=== PATIENT | male | born 1945 | race African-American/Black ===

== ENCOUNTER 2017-11-16 17:25 | Inpatient (IN) ==
[2017-11-16 18:13] LABS: Basophils # 0.1 10*3/uL (0.0-0.2); Basophils % 0.5 % (0.0-0.8); Eosinophils % 0.1 % (0.00-10.9); Hematocrit 32.4 VOL% (42.0-52.0); Hemoglobin 11.5 GM/DL (14.0-18.0); Immature Granulocytes % 0.6 %; Lymphocytes % 12.4 % (21.2-54.2); Mean Corpuscular HGB Conc 35.5 GM/DL (32-36); Mean Corpuscular Hemoglobin 33 PG (27-34); Mean Platelet Volume 9.9 FL (9.6-12.0); Monocytes # 1.1 10*3/uL (0.11-0.8); Monocytes % 6.9 % (1.7-12.7); Neutrophils # 12.6 10*3/uL (1.4-7.4); Neutrophils % 79.5 % (38.7-73.9); Platelet Count 315 T/CUMM (130-400); Red Blood Count 3.52 MC/CUMM (3.8-5.5); White Blood Count 15.9 T/CUMM (4-12)
[2017-11-16 18:38] LABS: Lactic Acid 2.5 MMOL/L (0.4-2.0)
[2017-11-16 18:44] LABS: Alanine Aminotransferase 10 U/L (16-61); Albumin 2.9 G/DL (3.4-5.0); Alkaline Phosphatase 180 U/L (45-117); Aspartate Amino Transferase 22 U/L (0-37); Bilirubin,Total < 0.39 MG/DL (0.2-1.0); Blood Urea Nitrogen 9 MG/DL (7-18); Glucose 124 MG/DL (74-106); Osmolality,Calculated 267.2 MOS/KG (273-304); Potassium 3.5 MMOL/L (3.5-5.1); Sodium 134 MMOL/L (136-145); Total Protein 8.1 G/DL (6.4-8.3); Troponin I Only < 0.015 NG/ML (0.00-0.045)
[2017-11-16] MEDS ORDERED: SODIUM CHLORIDE 0.9% 2,050 ML IV ONE (20:01)
[2017-11-16] MEDS ORDERED: AZITHROMYCIN INJ 500 MG in SODIUM CHLORIDE 0.9% 250 ML IV STA (20:04)
[2017-11-16] MEDS ORDERED: cefTRIAXone 1,000 MG in SODIUM CHLORIDE 0.9% 100 ML IV STA (20:04)
[2017-11-16] MEDS ORDERED: ALBUTEROL/IPRATROPIUM 3 ML NEB RESP TX STA (20:06)
[2017-11-16] MEDS ORDERED: methylPREDNISolone SOD SUC 125 MG/2 ML VIAL IV STA (20:06)
[2017-11-16] MEDS ORDERED: AZITHROMYCIN 500 MG VIAL IV ONE (21:39)
[2017-11-16] MEDS ORDERED: methylPREDNISolone SOD SUC 125 MG/2 ML VIAL ONE (21:39)
[2017-11-16] MEDS ORDERED: cefTRIAXone 1,000 MG VIAL ONE (21:39)
[2017-11-16 22:36] LABS: Apearance,Urine CLEAR (Clear); Bilirubin,Urine Negative (Negative); Blood, Urine Small mg/dL (Negative); Glucose,Urine (UA) Negative (Negative); Ketones,Urine Negative (Negative); Nitrite,Urine Negative (Negative); Protein,Urine Negative; RBC,Urine 9 /HPF (0-4); Squamous Epithelial Cell,Urine Occasional /HPF (0-10); Urine Color Straw (Yellow); Urine Specific Gravity 1.032 (1.001-1.035); Urine Urobilinogen < 2.0 EU/DL (0.2-1.0); WBC,Urine 1 /HPF (0-6)
[2017-11-16] MEDS ORDERED: MORPHINE 2 MG/1 ML SYRINGE IV PRN (23:42)
[2017-11-16] MEDS ORDERED: LORazepam 2 MG/1 ML VIAL IV PRN (23:42)
[2017-11-16] MEDS ORDERED: ALBUTEROL/IPRATROPIUM 3 ML NEB RESP TX PRN (23:42)
[2017-11-16] MEDS ORDERED: ONDANSETRON 4 MG/2 ML VIAL IV PRN (23:42)
[2017-11-16] MEDS ORDERED: MELOXICAM 7.5 MG TABLET PO PRN (23:42)
[2017-11-16] MEDS ORDERED: ACETAMINOPHEN 500 MG TABLET PO PRN (23:42)
[2017-11-17] MEDS: chlordiazePOXIDE 25 MG CAPSULE PO SCH ×2 (00:13→05:45)
[2017-11-17] MEDS: PHENYTOIN ER 100 MG CAPSULE PO SCH ×3 (00:14→21:21)
[2017-11-17] MEDS: SODIUM CHLORIDE 0.9% 1,000 ML IV SCH ×2 (00:17→14:50)
[2017-11-17] MEDS: COLESTIPOL 1 GM TABLET PO SCH ×3 (00:17→21:22)
[2017-11-17] MEDS: ALBUTEROL/IPRATROPIUM 3 ML NEB RESP TX SCH ×8 (03:19→19:27)
[2017-11-17] MEDS: VANCOMYCIN INJ 1,000 MG in SODIUM CHLORIDE 0.9% 250 ML IV SCH ×3 (03:43→21:19)
[2017-11-17] MEDS: methylPREDNISolone SOD SUC 40 MG/1 ML VIAL IV SCH ×3 (05:30→21:20)
[2017-11-17 05:31] LABS: Hemoglobin A1C 4.9 % (4.2-6.3)
[2017-11-17 05:40] LABS: Phenytoin (Dilantin) 20.8 UG/ML (10-20)
[2017-11-17 05:54] LABS: Risk Ratio 1.94; VLDL CHOLESTEROL 13.2 MG/DL
[2017-11-17] MEDS ORDERED: chlordiazePOXIDE 25 MG CAPSULE PO PRN (07:35)
[2017-11-17] MEDS ORDERED: CYANOCOBALAMIN 1000 MCG/1 ML VIAL IM SCH (09:00)
[2017-11-17] MEDS: ENOXAPARIN 40 MG/0.4 ML SYRINGE SUBCUT SCH (09:55)
[2017-11-17] MEDS: LEVOFLOXACIN INJ 750 MG in PREMIX 1 EACH IV SCH (09:55)
[2017-11-17] MEDS: MAGNESIUM OXIDE 400 MG TABLET PO SCH (09:56)
[2017-11-17] MEDS: FOLIC ACID 1 MG TABLET PO SCH (09:56)
[2017-11-17] MEDS: GABAPENTIN 300 MG CAPSULE PO SCH ×3 (09:57→21:21)
[2017-11-17] MEDS: amLODIPine 10 MG TABLET PO SCH (09:57)
[2017-11-17] MEDS: THIAMINE 100 MG TABLET PO SCH ×2 (09:57→21:22)
[2017-11-17] MEDS: MULTIVITAMIN (CENTRUM) TABLET PO SCH (09:57)
[2017-11-17] MEDS: PANTOPRAZOLE 40 MG TABLET PO SCH (09:58)
[2017-11-17] MEDS: DOCUSATE SODIUM 100 MG CAPSULE PO SCH ×2 (09:58→21:21)
[2017-11-17] MEDS: SERTRALINE 100 MG TABLET PO SCH (10:35)
[2017-11-17] MEDS: DORNASE ALFA 2.5 MG/2.5 ML VIAL RESP TX SCH ×2 (11:12→19:27)
[2017-11-17 11:29] LABS: Free T4 (Free Thyroxine) 0.99 NG/DL (0.76-1.46); Thyroid Stimulating Hormone 0.468 uIU/ml (0.358-3.74)
[2017-11-17] MEDS: PIPERACILLIN/TAZOBACTAM 3,375 MG in SODIUM CHLORIDE 0.9% 100 ML IV SCH ×2 (15:25→21:19)
[2017-11-18] MEDS: ALBUTEROL/IPRATROPIUM 3 ML NEB RESP TX SCH ×3 (00:53→14:05)
[2017-11-18] MEDS: VANCOMYCIN INJ 1,000 MG in SODIUM CHLORIDE 0.9% 250 ML IV SCH ×2 (04:13→13:20)
[2017-11-18] MEDS: methylPREDNISolone SOD SUC 40 MG/1 ML VIAL IV SCH ×3 (04:13→21:28)
[2017-11-18] MEDS: PIPERACILLIN/TAZOBACTAM 3,375 MG in SODIUM CHLORIDE 0.9% 100 ML IV SCH ×3 (04:14→21:28)
[2017-11-18] MEDS: SODIUM CHLORIDE 0.9% 1,000 ML IV SCH (04:14)
[2017-11-18 05:14] LABS: Basophils % 0.2 % (0.0-0.8); Hematocrit 30.2 VOL% (42.0-52.0); Hemoglobin 10.2 GM/DL (14.0-18.0); Immature Granulocytes % 0.7 %; Immature Granulocytes Absolute 0.09 #; Lymphocytes # 1.5 10*3/uL (1.4-4.0); Mean Corpuscular HGB Conc 33.8 GM/DL (32-36); Mean Corpuscular Hemoglobin 32 PG (27-34); Mean Corpuscular Volume 95.6 FL (87-102); Mean Platelet Volume 10.3 FL (9.6-12.0); Monocytes # 0.8 10*3/uL (0.11-0.8); Monocytes % 5.6 % (1.7-12.7); Neutrophils # 11.3 10*3/uL (1.4-7.4); Neutrophils % 82.5 % (38.7-73.9); Platelet Count 276 T/CUMM (130-400); Red Blood Count 3.16 MC/CUMM (3.8-5.5); Red Cell Distribution Width 11.9 % (9.3-17.3); White Blood Count 13.7 T/CUMM (4-12)
[2017-11-18 06:05] LABS: Alanine Aminotransferase < 9 U/L (16-61); Albumin 2.4 G/DL (3.4-5.0); Alkaline Phosphatase 135 U/L (45-117); Aspartate Amino Transferase 14 U/L (0-37); Bilirubin,Total < 0.39 MG/DL (0.2-1.0); Blood Urea Nitrogen 10 MG/DL (7-18); Calcium 8.3 MG/DL (8.5-10.1); Glucose 214 MG/DL (74-106); Osmolality,Calculated 277.8 MOS/KG (273-304); Potassium 4.4 MMOL/L (3.5-5.1); Sodium 137 MMOL/L (136-145); Total Protein 6.4 G/DL (6.4-8.3)
[2017-11-18] MEDS: DORNASE ALFA 2.5 MG/2.5 ML VIAL RESP TX SCH ×2 (07:38→19:50)
[2017-11-18] MEDS: DOCUSATE SODIUM 100 MG CAPSULE PO SCH ×2 (09:41→21:28)
[2017-11-18] MEDS: MULTIVITAMIN (CENTRUM) TABLET PO SCH (09:41)
[2017-11-18] MEDS: LEVOFLOXACIN INJ 750 MG in PREMIX 1 EACH IV SCH (09:42)
[2017-11-18] MEDS: PHENYTOIN ER 100 MG CAPSULE PO SCH ×2 (09:42→21:27)
[2017-11-18] MEDS: THIAMINE 100 MG TABLET PO SCH ×2 (09:42→21:28)
[2017-11-18] MEDS: COLESTIPOL 1 GM TABLET PO SCH ×2 (09:42→21:27)
[2017-11-18] MEDS: FOLIC ACID 1 MG TABLET PO SCH (09:42)
[2017-11-18] MEDS: SERTRALINE 100 MG TABLET PO SCH (09:43)
[2017-11-18] MEDS: amLODIPine 10 MG TABLET PO SCH (09:43)
[2017-11-18] MEDS: GABAPENTIN 300 MG CAPSULE PO SCH ×3 (09:43→21:27)
[2017-11-18] MEDS: ENOXAPARIN 40 MG/0.4 ML SYRINGE SUBCUT SCH (09:43)
[2017-11-18] MEDS: PANTOPRAZOLE 40 MG TABLET PO SCH (09:43)
[2017-11-18] MEDS: MAGNESIUM OXIDE 400 MG TABLET PO SCH (09:47)
[2017-11-18 15:46] LABS: Procalcitonin, S 0.16 ng/mL (<=0.15)
[2017-11-18] MEDS: ALBUTEROL/IPRATROPIUM 3 ML NEB RESP TX PRN ×2 (19:50→23:43)
[2017-11-19] MEDS: VANCOMYCIN INJ 1,000 MG in SODIUM CHLORIDE 0.9% 250 ML IV SCH ×2 (01:29→13:20)
[2017-11-19] MEDS: methylPREDNISolone SOD SUC 40 MG/1 ML VIAL IV SCH ×3 (04:13→21:49)
[2017-11-19] MEDS: PIPERACILLIN/TAZOBACTAM 3,375 MG in SODIUM CHLORIDE 0.9% 100 ML IV SCH ×3 (04:13→21:47)
[2017-11-19 07:13] LABS: Calcium 8.4 MG/DL (8.5-10.1); Osmolality,Calculated 276.4 MOS/KG (273-304); Potassium 4.2 MMOL/L (3.5-5.1)
[2017-11-19] MEDS: DORNASE ALFA 2.5 MG/2.5 ML VIAL RESP TX SCH ×2 (07:40→19:08)
[2017-11-19] MEDS ORDERED: MAGNESIUM SULF RIDER 2 GM in PREMIX 1 EACH IV PRN (08:08)
[2017-11-19] MEDS ORDERED: MAGNESIUM SULF RIDER 4 GM in PREMIX 1 EACH IV PRN (08:08)
[2017-11-19] MEDS: GABAPENTIN 300 MG CAPSULE PO SCH ×3 (09:47→21:48)
[2017-11-19] MEDS: MULTIVITAMIN (CENTRUM) TABLET PO SCH (09:47)
[2017-11-19] MEDS: PHENYTOIN ER 100 MG CAPSULE PO SCH ×2 (09:47→21:48)
[2017-11-19] MEDS: SERTRALINE 100 MG TABLET PO SCH (09:47)
[2017-11-19] MEDS: THIAMINE 100 MG TABLET PO SCH ×2 (09:47→21:49)
[2017-11-19] MEDS: DOCUSATE SODIUM 100 MG CAPSULE PO SCH ×2 (09:48→21:48)
[2017-11-19] MEDS: COLESTIPOL 1 GM TABLET PO SCH ×2 (09:48→21:49)
[2017-11-19] MEDS: ENOXAPARIN 40 MG/0.4 ML SYRINGE SUBCUT SCH (09:48)
[2017-11-19] MEDS: MAGNESIUM OXIDE 400 MG TABLET PO SCH (09:48)
[2017-11-19] MEDS: PANTOPRAZOLE 40 MG TABLET PO SCH (09:48)
[2017-11-19] MEDS: amLODIPine 10 MG TABLET PO SCH (09:48)
[2017-11-19] MEDS: FOLIC ACID 1 MG TABLET PO SCH (09:48)
[2017-11-19] MEDS: LEVOFLOXACIN INJ 750 MG in PREMIX 1 EACH IV SCH (09:52)
[2017-11-19] MEDS: ALBUTEROL/IPRATROPIUM 3 ML NEB RESP TX SCH ×2 (13:15→19:08)
[2017-11-20] MEDS: ALBUTEROL/IPRATROPIUM 3 ML NEB RESP TX SCH ×3 (00:16→12:30)
[2017-11-20] MEDS: VANCOMYCIN INJ 1,000 MG in SODIUM CHLORIDE 0.9% 250 ML IV SCH (01:02)
[2017-11-20] MEDS: PIPERACILLIN/TAZOBACTAM 3,375 MG in SODIUM CHLORIDE 0.9% 100 ML IV SCH (05:21)
[2017-11-20] MEDS: methylPREDNISolone SOD SUC 40 MG/1 ML VIAL IV SCH (05:22)
[2017-11-20 06:15] LABS: Basophils % 0.4 % (0.0-0.8); Eosinophils % 0.2 % (0.00-10.9); Hematocrit 31.1 VOL% (42.0-52.0); Hemoglobin 10.2 GM/DL (14.0-18.0); Immature Granulocytes % 0.6 %; Immature Granulocytes Absolute 0.06 #; Lymphocytes # 2.1 10*3/uL (1.4-4.0); Lymphocytes % 20.7 % (21.2-54.2); Mean Corpuscular HGB Conc 32.8 GM/DL (32-36); Mean Corpuscular Hemoglobin 32 PG (27-34); Mean Corpuscular Volume 97.8 FL (87-102); Monocytes # 0.6 10*3/uL (0.11-0.8); Monocytes % 5.9 % (1.7-12.7); Neutrophils # 7.3 10*3/uL (1.4-7.4); Neutrophils % 72.2 % (38.7-73.9); Platelet Count 312 T/CUMM (130-400); Red Blood Count 3.18 MC/CUMM (3.8-5.5); Red Cell Distribution Width 12.1 % (9.3-17.3); White Blood Count 10.1 T/CUMM (4-12)
[2017-11-20 06:50] LABS: Calcium 8.5 MG/DL (8.5-10.1); Osmolality,Calculated 276.5 MOS/KG (273-304); Potassium 4.7 MMOL/L (3.5-5.1)
[2017-11-20] MEDS: DORNASE ALFA 2.5 MG/2.5 ML VIAL RESP TX SCH (07:09)
[2017-11-20] MEDS: SERTRALINE 100 MG TABLET PO SCH (08:56)
[2017-11-20] MEDS: COLESTIPOL 1 GM TABLET PO SCH (08:56)
[2017-11-20] MEDS: GABAPENTIN 300 MG CAPSULE PO SCH (08:56)
[2017-11-20] MEDS: THIAMINE 100 MG TABLET PO SCH (08:56)
[2017-11-20] MEDS: PHENYTOIN ER 100 MG CAPSULE PO SCH (08:56)
[2017-11-20] MEDS: amLODIPine 10 MG TABLET PO SCH (08:56)
[2017-11-20] MEDS: MAGNESIUM OXIDE 400 MG TABLET PO SCH (08:56)
[2017-11-20] MEDS: DOCUSATE SODIUM 100 MG CAPSULE PO SCH (08:57)
[2017-11-20] MEDS: FOLIC ACID 1 MG TABLET PO SCH (08:57)
[2017-11-20] MEDS: PANTOPRAZOLE 40 MG TABLET PO SCH (08:57)
[2017-11-20] MEDS: LEVOFLOXACIN INJ 750 MG in PREMIX 1 EACH IV SCH (08:57)
[2017-11-20] MEDS: MULTIVITAMIN (CENTRUM) TABLET PO SCH (08:57)
[2017-11-20] MEDS: ENOXAPARIN 40 MG/0.4 ML SYRINGE SUBCUT SCH (08:57)
[2017-11-20 11:55] VITALS: BP 138/86
== END 2017-11-20 13:45 | disposition home or self-care (01) | DRG 190 ==
LOC: N.ED 17:25 → N.EDINP 20:34 → N.5E 22:39
PROVIDERS: ADMIT Family Medicine; ATTEND Family Medicine

== ENCOUNTER 2018-09-29 12:44 | Observation (INO) ==
[2018-09-29] MEDS ORDERED: methylPREDNISolone SOD SUC 125 MG/2 ML VIAL ONE (13:19)
[2018-09-29] MEDS ORDERED: diphenhydrAMINE 50 MG/1 ML VIAL ONE (13:19)
[2018-09-29] MEDS ORDERED: methylPREDNISolone SOD SUC 125 MG/2 ML VIAL IV STA (13:20)
[2018-09-29] MEDS ORDERED: FAMOTIDINE 20 MG/2 ML VIAL IV STA (13:20)
[2018-09-29] MEDS ORDERED: diphenhydrAMINE 50 MG/1 ML VIAL IV STA (13:20)
[2018-09-29] MEDS ORDERED: FAMOTIDINE 20 MG/2 ML VIAL IV ONE (13:20)
[2018-09-29] MEDS ORDERED: ONDANSETRON 4 MG/2 ML VIAL IV STA (14:09)
[2018-09-29] MEDS ORDERED: ONDANSETRON 4 MG/2 ML VIAL IV PRN (15:44)
[2018-09-29] MEDS ORDERED: diphenhydrAMINE 50 MG/1 ML VIAL IV PRN (15:48)
[2018-09-29] MEDS ORDERED: ALBUTEROL 2.5 MG/3 ML NEB RESP TX PRN (15:49)
[2018-09-29] MEDS ORDERED: chlordiazePOXIDE 10 MG CAPSULE PO PRN (15:51)
[2018-09-29] MEDS ORDERED: CYANOCOBALAMIN 1000 MCG/1 ML VIAL IM SCH (18:00)
[2018-09-29] MEDS: SODIUM CHLORIDE 0.9% 1,000 ML IV SCH (18:33)
[2018-09-29] MEDS ORDERED: traZODone 50 MG TABLET PO SCH (21:00)
[2018-09-29] MEDS ORDERED: risperiDONE 1 MG TABLET PO SCH (21:00)
[2018-09-29] MEDS: BUDESONIDE/FORMOTEROL 160-4.5 INHALER 6 GM INH SCH (22:00)
[2018-09-29] MEDS: GABAPENTIN 600 MG TABLET PO SCH (22:00)
[2018-09-29] MEDS: PHENYTOIN ER 100 MG CAPSULE PO SCH (22:00)
[2018-09-29] MEDS: FAMOTIDINE 20 MG TABLET PO SCH (22:00)
[2018-09-30] MEDS ORDERED: methylPREDNISolone SOD SUC 40 MG/1 ML VIAL IV SCH (01:00)
[2018-09-30] MEDS: SODIUM CHLORIDE 0.9% 1,000 ML IV SCH (04:28)
[2018-09-30 04:54] LABS: Basophils % 0.3 % (0.0-0.8); Hematocrit 30.2 VOL% (42.0-52.0); Hemoglobin 9.9 GM/DL (14.0-18.0); Immature Granulocytes % 0.3 %; Immature Granulocytes Absolute 0.02 #; Lymphocytes # 0.9 10*3/uL (1.4-4.0); Lymphocytes % 14.4 % (21.2-54.2); Mean Corpuscular HGB Conc 32.8 GM/DL (32-36); Mean Corpuscular Hemoglobin 32 PG (27-34); Mean Corpuscular Volume 96.8 FL (87-102); Mean Platelet Volume 10.8 FL (9.6-12.0); Monocytes # 0.3 10*3/uL (0.11-0.8); Monocytes % 5.2 % (1.7-12.7); Neutrophils # 4.8 10*3/uL (1.4-7.4); Neutrophils % 79.8 % (38.7-73.9); Platelet Count 181 T/CUMM (130-400); Red Blood Count 3.12 MC/CUMM (3.8-5.5); Red Cell Distribution Width 12.1 % (9.3-17.3)
[2018-09-30 05:14] LABS: Calcium 8.6 MG/DL (8.5-10.1); Osmolality,Calculated 279.5 MOS/KG (273-304); Potassium 4.4 MMOL/L (3.5-5.1)
[2018-09-30] MEDS ORDERED: buPROPion XL 150 MG TABLET PO SCH (09:00)
[2018-09-30] MEDS ORDERED: MAGNESIUM OXIDE 400 MG TABLET PO SCH (09:00)
[2018-09-30] MEDS ORDERED: amLODIPine 10 MG TABLET PO SCH (09:00)
[2018-09-30] MEDS ORDERED: CETIRIZINE 10 MG TABLET PO SCH (09:00)
[2018-09-30] MEDS ORDERED: FOLIC ACID 1 MG TABLET PO SCH (09:00)
[2018-09-30] MEDS: GABAPENTIN 600 MG TABLET PO SCH (09:37)
[2018-09-30] MEDS: FAMOTIDINE 20 MG TABLET PO SCH (09:41)
[2018-09-30] MEDS: PHENYTOIN ER 100 MG CAPSULE PO SCH (09:42)
[2018-09-30] MEDS: BUDESONIDE/FORMOTEROL 160-4.5 INHALER 6 GM INH SCH (09:43)
[2018-09-30 12:01] VITALS: BP 119/89
[2018-09-30] MEDS: IPRATROPIUM 500 MCG/2.5 ML NEB RESP TX SCH ×2 (12:11→12:49)
== END 2018-09-30 13:05 | disposition home or self-care (01) ==
LOC: N.ED 12:44 → N.EDINP 12:44 → SUATTDRO 15:44 → N.3E 17:00
PROVIDERS: ADMIT Internal Medicine Nephrology; ATTEND Emergency Medicine

== ENCOUNTER 2019-11-12 08:58 | Inpatient (IN) ==
[2019-11-12] MEDS ORDERED: DIAZEPAM 5 MG TABLET PO ONE (09:11)
[2019-11-12] MEDS ORDERED: MAGNESIUM SULF RIDER 2 GM in PREMIX 1 EACH IV PRN (09:11)
[2019-11-12] MEDS ORDERED: diphenhydrAMINE CAP 25 MG CAPSULE PO ONE (09:11)
[2019-11-12] MEDS ORDERED: POTASSIUM CHLORIDE RIDER 10 MEQ in PREMIX 1 EACH IV PRN (09:11)
[2019-11-12] MEDS ORDERED: ASPIRIN 325 MG TABLET PO ONE (09:11)
[2019-11-12] MEDS ORDERED: diphenhydrAMINE CAP 25 MG CAPSULE ONE (11:57)
[2019-11-12] MEDS ORDERED: DIAZEPAM 5 MG TABLET ONE (11:57)
[2019-11-12] MEDS ORDERED: ASPIRIN 325 MG TABLET ONE (11:57)
[2019-11-12] MEDS: SODIUM CHLORIDE 0.9% 1,000 ML IV SCH ×2 (12:02→22:20)
[2019-11-12] MEDS ORDERED: LIDOCAINE 1% 20 ML VIAL ONE (12:57)
[2019-11-12] MEDS ORDERED: MIDAZOLAM 2 MG/2 ML VIAL ONE (13:21)
[2019-11-12] MEDS ORDERED: HYDROmorphone 2 MG/1 ML VIAL ONE (13:21)
[2019-11-12] MEDS ORDERED: HEPARIN 5,000 UNIT/1 ML VIAL ONE (13:44)
[2019-11-12] MEDS ORDERED: NITROGLYCERIN DRIP 50 MG/250 ML BOTTLE IV ONE (14:33)
[2019-11-12] MEDS ORDERED: CLOPIDOGREL 300 MG TABLET ONE (14:54)
[2019-11-12] MEDS ORDERED: traMADol 50 MG TABLET PO PRN (15:05)
[2019-11-12] MEDS ORDERED: ALBUTEROL 2.5 MG/3 ML NEB RESP TX PRN (15:05)
[2019-11-12] MEDS: IPRATROPIUM 500 MCG/2.5 ML NEB RESP TX SCH (19:20)
[2019-11-12] MEDS ORDERED: risperiDONE 1 MG TABLET PO SCH (21:00)
[2019-11-12] MEDS ORDERED: traZODone 50 MG TABLET PO SCH (21:00)
[2019-11-12] MEDS: BUDESONIDE/FORMOTEROL 160-4.5 INHALER 6 GM INH SCH (21:19)
[2019-11-12] MEDS: valACYclovir 500 MG TABLET PO SCH (21:19)
[2019-11-12] MEDS: COLESTIPOL 1 GM TABLET PO SCH (21:19)
[2019-11-12] MEDS: GABAPENTIN 300 MG CAPSULE PO SCH (21:20)
[2019-11-12] MEDS: RIVAROXABAN 2.5 MG TABLET PO SCH (21:20)
[2019-11-13 06:57] LABS: Basophils % 0.9 % (0.0-0.8); Eosinophils # 0.1 10*3/uL (0.0-0.87); Eosinophils % 2.3 % (0.00-10.9); Hematocrit 29.3 VOL% (42.0-52.0); Hemoglobin 9.5 GM/DL (14.0-18.0); Immature Granulocytes % 0.2 %; Immature Granulocytes Absolute 0.01 #; Lymphocytes % 22.1 % (21.2-54.2); Mean Corpuscular HGB Conc 32.4 GM/DL (32-36); Mean Corpuscular Volume 93.6 FL (87-102); Mean Platelet Volume 10.6 FL (9.6-12.0); Monocytes % 15.2 % (1.7-12.7); Neutrophils % 59.3 % (38.7-73.9); Platelet Count 179 T/CUMM (130-400); Red Blood Count 3.13 MC/CUMM (3.8-5.5); Red Cell Distribution Width 12.9 % (9.3-17.3); White Blood Count 4.4 T/CUMM (4-12)
[2019-11-13 07:16] LABS: Calcium 8.5 MG/DL (8.5-10.1); Osmolality,Calculated 273.7 MOS/KG (273-304)
[2019-11-13] MEDS: IPRATROPIUM 500 MCG/2.5 ML NEB RESP TX SCH ×2 (07:30→11:20)
[2019-11-13 07:48] VITALS: BP 137/68
[2019-11-13] MEDS: COLESTIPOL 1 GM TABLET PO SCH (08:50)
[2019-11-13] MEDS: GABAPENTIN 300 MG CAPSULE PO SCH (08:51)
[2019-11-13] MEDS: valACYclovir 500 MG TABLET PO SCH (08:52)
[2019-11-13] MEDS: BUDESONIDE/FORMOTEROL 160-4.5 INHALER 6 GM INH SCH (08:52)
[2019-11-13] MEDS: RIVAROXABAN 2.5 MG TABLET PO SCH (08:53)
[2019-11-13] MEDS: SODIUM CHLORIDE 0.9% 1,000 ML IV SCH (08:53)
[2019-11-13] MEDS ORDERED: buPROPion SR 100 MG TABLET PO SCH (09:00)
[2019-11-13] MEDS ORDERED: MAGNESIUM OXIDE 400 MG TABLET PO SCH (09:00)
[2019-11-13] MEDS ORDERED: amLODIPine 10 MG TABLET PO SCH (09:00)
[2019-11-13] MEDS ORDERED: CLOPIDOGREL 75 MG TABLET PO SCH (09:00)
[2019-11-13] MEDS ORDERED: ROSUVASTATIN 20 MG TABLET PO SCH (09:00)
[2019-11-13] MEDS ORDERED: PHENYTOIN ER 100 MG CAPSULE PO SCH (09:00)
[2019-11-28] MEDS ORDERED: CYANOCOBALAMIN 1000 MCG/1 ML VIAL IM SCH (09:00)
== END 2019-11-13 12:05 | disposition home or self-care (01) | DRG 254 ==
LOC: N.CL 08:58 → N.2E 15:44
PROVIDERS: ADMIT Internal Medicine Cardiovascular Disease; ATTEND Internal Medicine Cardiovascular Disease

== ENCOUNTER 2019-12-19 15:41 | Inpatient (IN) ==
[2019-12-19] MEDS ORDERED: THIAMINE 200 MG/2 ML VIAL IV STA (16:37)
[2019-12-19 17:35] LABS: PT Patient Result 11.1 SECS (9.8-11.9); Partial Thromboplastin Time 28.4 SECS (23.9-33.8)
[2019-12-19 18:00] LABS: Basophils # 0.1 10*3/uL (0.0-0.2); Eosinophils # 0.1 10*3/uL (0.0-0.87); Eosinophils % 1.1 % (0.00-10.9); Hematocrit 35.4 VOL% (42.0-52.0); Hemoglobin 11.2 GM/DL (14.0-18.0); Immature Granulocytes % 0.5 %; Immature Granulocytes Absolute 0.03 #; Lymphocytes # 1.7 10*3/uL (1.4-4.0); Lymphocytes % 27.5 % (21.2-54.2); Mean Corpuscular HGB Conc 31.6 GM/DL (32-36); Mean Corpuscular Volume 93.9 FL (87-102); Mean Platelet Volume 9.9 FL (9.6-12.0); Monocytes % 11.3 % (1.7-12.7); Neutrophils % 58.6 % (38.7-73.9); Platelet Count 257 T/CUMM (130-400); Red Blood Count 3.77 MC/CUMM (3.8-5.5); Red Cell Distribution Width 12.2 % (9.3-17.3); White Blood Count 6.2 T/CUMM (4-12)
[2019-12-19 18:15] LABS: Alanine Aminotransferase 18 U/L (16-61); Albumin 3.6 G/DL (3.4-5.0); Alkaline Phosphatase 169 U/L (45-117); Aspartate Amino Transferase 23 U/L (0-37); Bilirubin,Total < 0.39 MG/DL (0.2-1.0); Blood Urea Nitrogen 15 MG/DL (7-18); Calcium 9.1 MG/DL (8.5-10.1); Estimated Glom Filtration Rate 99 ML/MIN; Glucose 104 MG/DL (74-106); Osmolality,Calculated 270.1 MOS/KG (273-304); Total Protein 7.8 G/DL (6.4-8.3)
[2019-12-19 18:24] LABS: Apearance,Urine CLEAR (Clear); Bilirubin,Urine Negative (Negative); Blood, Urine Negative (Negative); Glucose,Urine (UA) Negative (Negative); Ketones,Urine Negative (Negative); Mucus,Urine Occasional /LPF (Occasional); Nitrite,Urine Negative (Negative); Protein,Urine Negative; RBC,Urine <1 /HPF (0-4); Squamous Epithelial Cell,Urine Occasional /HPF (0-10); Urine Color Straw (Yellow); Urine Specific Gravity 1.006 (1.001-1.035); Urine Urobilinogen < 2.0 EU/DL (0.2-1.0); WBC,Urine <1 /HPF (0-6)
[2019-12-19 18:54] LABS: Barbiturates Screen,Urine Negative (Negative); Benzodiazepines Screen,Urine Negative (Negative); Cannabinoid Screen,Urine Negative (Negative); Opiate Screen,Urine Negative (Negative); Phencyclidine Screen,Urine Negative (Negative)
[2019-12-19] MEDS ORDERED: DEXTROSE 50% 25 GM/50 ML VIAL IV PRN (19:10)
[2019-12-19] MEDS ORDERED: GLUCAGON 1 MG VIAL IM PRN (19:10)
[2019-12-19] MEDS ORDERED: ONDANSETRON 4 MG/2 ML VIAL IV PRN (19:10)
[2019-12-19] MEDS ORDERED: guaiFENesin/DM ER 600-30 MG TABLET PO PRN (19:10)
[2019-12-19] MEDS ORDERED: ENOXAPARIN 30 MG/0.3 ML SYRINGE SUBCUT SCH (19:30)
[2019-12-20] MEDS: SODIUM CHLORIDE 0.45% 1,000 ML IV SCH ×5 (00:01→20:28)
[2019-12-20] MEDS: COLESTIPOL 1 GM TABLET PO SCH ×3 (00:02→21:03)
[2019-12-20] MEDS: GABAPENTIN 600 MG TABLET PO SCH ×4 (00:02→21:03)
[2019-12-20] MEDS: risperiDONE 1 MG TABLET PO SCH ×2 (00:13→21:03)
[2019-12-20] MEDS: ALBUTEROL/IPRATROPIUM 3 ML NEB RESP TX SCH ×4 (01:50→19:46)
[2019-12-20 05:27] LABS: Basophils # 0.1 10*3/uL (0.0-0.2); Eosinophils # 0.1 10*3/uL (0.0-0.87); Eosinophils % 1.9 % (0.00-10.9); Hematocrit 31.7 VOL% (42.0-52.0); Hemoglobin 10.3 GM/DL (14.0-18.0); Immature Granulocytes % 0.2 %; Immature Granulocytes Absolute 0.01 #; Lymphocytes # 1.3 10*3/uL (1.4-4.0); Lymphocytes % 25.6 % (21.2-54.2); Mean Corpuscular HGB Conc 32.5 GM/DL (32-36); Mean Corpuscular Volume 92.4 FL (87-102); Mean Platelet Volume 10.5 FL (9.6-12.0); Neutrophils % 57.3 % (38.7-73.9); Platelet Count 249 T/CUMM (130-400); Red Blood Count 3.43 MC/CUMM (3.8-5.5); White Blood Count 5.2 T/CUMM (4-12)
[2019-12-20 06:02] LABS: Calcium 9.1 MG/DL (8.5-10.1); Free T4 (Free Thyroxine) 0.98 NG/DL (0.76-1.46); Osmolality,Calculated 264.4 MOS/KG (273-304); Thyroid Stimulating Hormone 1.96 uIU/ml (0.358-3.74)
[2019-12-20] MEDS ORDERED: MAGNESIUM SULF RIDER 2 GM in PREMIX 1 EACH IV PRN (08:47)
[2019-12-20] MEDS ORDERED: MAGNESIUM SULF RIDER 4 GM in PREMIX 1 EACH IV PRN (08:47)
[2019-12-20] MEDS ORDERED: TIOTROPIUM BROMIDE INH SCH (09:00)
[2019-12-20] MEDS: PANTOPRAZOLE 40 MG TABLET PO SCH (09:25)
[2019-12-20] MEDS: ASPIRIN EC 81 MG TABLET PO SCH (09:28)
[2019-12-20] MEDS: buPROPion SR 100 MG TABLET PO SCH (09:28)
[2019-12-20] MEDS: MAGNESIUM OXIDE 400 MG TABLET PO SCH (09:28)
[2019-12-20] MEDS: CLOPIDOGREL 75 MG TABLET PO SCH (09:28)
[2019-12-20] MEDS: amLODIPine 10 MG TABLET PO SCH (09:29)
[2019-12-20 09:48] LABS: % Iron Saturation 24.8 % (18-50)
[2019-12-20] MEDS: RIVAROXABAN 2.5 MG TABLET PO SCH ×2 (11:54→21:04)
[2019-12-20] MEDS: ROSUVASTATIN 20 MG TABLET PO SCH (21:03)
[2019-12-21] MEDS: ALBUTEROL/IPRATROPIUM 3 ML NEB RESP TX SCH ×4 (02:00→19:54)
[2019-12-21] MEDS: SODIUM CHLORIDE 0.45% 1,000 ML IV SCH ×2 (03:17→11:20)
[2019-12-21 05:12] LABS: Basophils % 0.9 % (0.0-0.8); Eosinophils # 0.1 10*3/uL (0.0-0.87); Eosinophils % 2.9 % (0.00-10.9); Hematocrit 29.4 VOL% (42.0-52.0); Hemoglobin 9.4 GM/DL (14.0-18.0); Immature Granulocytes % 0.2 %; Immature Granulocytes Absolute 0.01 #; Lymphocytes % 23.1 % (21.2-54.2); Mean Corpuscular Volume 94.8 FL (87-102); Mean Platelet Volume 10.1 FL (9.6-12.0); Monocytes % 14.2 % (1.7-12.7); Neutrophils % 58.7 % (38.7-73.9); Platelet Count 224 T/CUMM (130-400); White Blood Count 4.5 T/CUMM (4-12)
[2019-12-21 05:21] LABS: Calcium 8.5 MG/DL (8.5-10.1); Osmolality,Calculated 264.4 MOS/KG (273-304)
[2019-12-21] MEDS: GABAPENTIN 600 MG TABLET PO SCH ×3 (09:02→20:12)
[2019-12-21] MEDS: ASPIRIN EC 81 MG TABLET PO SCH (09:02)
[2019-12-21] MEDS: MAGNESIUM OXIDE 400 MG TABLET PO SCH (09:02)
[2019-12-21] MEDS: amLODIPine 10 MG TABLET PO SCH (09:02)
[2019-12-21] MEDS: CLOPIDOGREL 75 MG TABLET PO SCH (09:03)
[2019-12-21] MEDS: PANTOPRAZOLE 40 MG TABLET PO SCH (09:03)
[2019-12-21] MEDS: RIVAROXABAN 2.5 MG TABLET PO SCH ×2 (09:03→20:12)
[2019-12-21] MEDS: buPROPion SR 100 MG TABLET PO SCH (09:10)
[2019-12-21] MEDS: COLESTIPOL 1 GM TABLET PO SCH ×2 (09:10→20:11)
[2019-12-21] MEDS: ROSUVASTATIN 20 MG TABLET PO SCH (20:11)
[2019-12-21] MEDS: risperiDONE 1 MG TABLET PO SCH (20:11)
[2019-12-22] MEDS: ALBUTEROL/IPRATROPIUM 3 ML NEB RESP TX SCH ×3 (00:49→12:11)
[2019-12-22] MEDS: RIVAROXABAN 2.5 MG TABLET PO SCH (09:28)
[2019-12-22] MEDS: MAGNESIUM OXIDE 400 MG TABLET PO SCH (09:28)
[2019-12-22] MEDS: buPROPion SR 100 MG TABLET PO SCH (09:28)
[2019-12-22] MEDS: CLOPIDOGREL 75 MG TABLET PO SCH (09:29)
[2019-12-22] MEDS: PANTOPRAZOLE 40 MG TABLET PO SCH (09:29)
[2019-12-22] MEDS: ASPIRIN EC 81 MG TABLET PO SCH (09:29)
[2019-12-22] MEDS: COLESTIPOL 1 GM TABLET PO SCH (09:29)
[2019-12-22] MEDS: GABAPENTIN 600 MG TABLET PO SCH (09:29)
[2019-12-22] MEDS: amLODIPine 10 MG TABLET PO SCH (09:29)
[2019-12-22 12:41] VITALS: BP 118/65
== END 2019-12-22 14:41 | disposition home health service (06) | DRG 948 ==
LOC: EDUNIT# → EDBD → N.ED 15:41 → N.EDINP 19:10 → SUATTDRO 19:10 → N.TELES 20:47 → N.2E 21:58 → N.TELES 22:13
PROVIDERS: ADMIT Internal Medicine; ATTEND Internal Medicine

== ENCOUNTER 2021-07-19 05:47 | Observation (INO) ==
[2021-07-17 12:36] LABS: Basophils # 0.1 10*3/uL (0.0-0.2); Basophils % 0.6 % (0.0-0.8); Eosinophils # 0.1 10*3/uL (0.0-0.87); Eosinophils % 0.8 % (0.00-10.9); Hematocrit 26.4 VOL% (42.0-52.0); Hemoglobin 8.5 GM/DL (14.0-18.0); Immature Granulocytes % 0.8 %; Immature Granulocytes Absolute 0.11 #; Lymphocytes # 1.1 10*3/uL (1.4-4.0); Lymphocytes % 8.2 % (21.2-54.2); Mean Corpuscular HGB Conc 32.2 GM/DL (32-36); Mean Corpuscular Volume 92.3 FL (87-102); Mean Platelet Volume 9.2 FL (9.6-12.0); Monocytes % 8.4 % (1.7-12.7); Neutrophils % 81.2 % (38.7-73.9); Platelet Count 582 T/CUMM (130-400); Red Blood Count 2.86 MC/CUMM (3.8-5.5); Red Cell Distribution Width 12.2 % (9.3-17.3); White Blood Count 13.7 T/CUMM (4-12)
[2021-07-17 12:50] LABS: INR 1.1; PT Patient Result 12.4 SECS (10.5-12.0); Partial Thromboplastin Time 36.1 SECS (23.8-32.1)
[2021-07-17 13:16] LABS: Alanine Aminotransferase 36 U/L (16-61); Albumin 3.2 G/DL (3.4-5.0); Alkaline Phosphatase 144 U/L (45-117); Aspartate Amino Transferase 72 U/L (0-37); Bilirubin,Total < 0.39 MG/DL (0.20-1.00); Blood Urea Nitrogen 16 MG/DL (7-18); Calcium 9.4 MG/DL (8.5-10.1); Carbon Dioxide 23 MMOL/L (21-32); Estimated Glom Filtration Rate 69 ML/MIN; Glucose 120 MG/DL (74-106); Osmolality,Calculated 261.8 MOS/KG (273-304); Potassium 4.5 MMOL/L (3.5-5.1); Sodium 130 MMOL/L (136-145); Total Protein 7.9 G/DL (6.4-8.2)
[2021-07-19] MEDS ORDERED: LACTATED RINGERS 1,000 ML IV SCH (06:00)
[2021-07-19] MEDS ORDERED: LIDOCAINE 1% 50 ML VIAL ONE (08:27)
[2021-07-19] MEDS ORDERED: SODIUM CHLORIDE 0.9% 1,000 ML IV SCH (09:00)
[2021-07-19] MEDS ORDERED: fentaNYL 100 MCG/2 ML VIAL ONE (09:38)
[2021-07-19] MEDS ORDERED: propofoL 200 MG/20 ML VIAL IV ONE (10:00)
[2021-07-19] MEDS ORDERED: SEVOFLURANE 1 UNIT/15 MINUTE INH ONE (10:00)
[2021-07-19] MEDS ORDERED: ONDANSETRON 4 MG/2 ML VIAL IV PRN ×2 (10:40→11:22)
[2021-07-19] MEDS: HYDROmorphone 2 MG/1 ML VIAL IV PRN ×3 (10:45→15:59)
[2021-07-19] MEDS ORDERED: HYDROmorphone 2 MG/1 ML VIAL IV PRN (11:22)
[2021-07-19] MEDS ORDERED: BISACODYL 5 MG TABLET PO PRN (11:22)
[2021-07-19] MEDS ORDERED: ACETAMINOPHEN 325 MG TABLET PO PRN (11:22)
[2021-07-19] MEDS ORDERED: ALBUTEROL 2.5 MG/3 ML NEB RESP TX PRN (11:27)
[2021-07-19] MEDS ORDERED: traZODone 50 MG TABLET PO PRN (11:27)
[2021-07-19] MEDS: GABAPENTIN 300 MG CAPSULE PO SCH ×2 (14:43→21:30)
[2021-07-19] MEDS: carvediloL 3.125 MG TABLET PO SCH (17:03)
[2021-07-19] MEDS: ceFAZolin 2,000 MG/50 ML DUPLEX IV SCH (17:04)
[2021-07-19] MEDS ORDERED: risperiDONE 1 MG TABLET PO SCH (21:00)
[2021-07-19] MEDS: PHENYTOIN ER 100 MG CAPSULE PO SCH (21:30)
[2021-07-20] MEDS: ceFAZolin 2,000 MG/50 ML DUPLEX IV SCH (01:17)
[2021-07-20] MEDS: HYDROmorphone 2 MG/1 ML VIAL IV PRN (02:07)
[2021-07-20] MEDS ORDERED: ENOXAPARIN 40 MG/0.4 ML SYRINGE SUBCUT SCH (05:30)
[2021-07-20 05:39] LABS: Basophils # 0.1 10*3/uL (0.0-0.2); Basophils % 0.7 % (0.0-0.8); Eosinophils # 0.3 10*3/uL (0.0-0.87); Eosinophils % 2.2 % (0.00-10.9); Hematocrit 23.1 VOL% (42.0-52.0); Hemoglobin 7.7 GM/DL (14.0-18.0); Immature Granulocytes % 1.2 %; Immature Granulocytes Absolute 0.14 #; Lymphocytes # 1.6 10*3/uL (1.4-4.0); Lymphocytes % 13.1 % (21.2-54.2); Mean Corpuscular HGB Conc 33.3 GM/DL (32-36); Mean Corpuscular Volume 94.3 FL (87-102); Mean Platelet Volume 10.1 FL (9.6-12.0); Monocytes % 8.4 % (1.7-12.7); Neutrophils % 74.4 % (38.7-73.9); Platelet Count 472 T/CUMM (130-400); Red Blood Count 2.45 MC/CUMM (3.8-5.5); Red Cell Distribution Width 12.3 % (9.3-17.3); White Blood Count 12.1 T/CUMM (4-12)
[2021-07-20 05:54] LABS: Calcium 9.3 MG/DL (8.5-10.1); Osmolality,Calculated 262.7 MOS/KG (273-304); Potassium 4.2 MMOL/L (3.5-5.1)
[2021-07-20] MEDS ORDERED: MAGNESIUM OXIDE 400 MG TABLET PO SCH (09:00)
[2021-07-20] MEDS ORDERED: PANTOPRAZOLE 40 MG TABLET PO SCH (09:00)
[2021-07-20] MEDS ORDERED: buPROPion SR 100 MG TABLET PO SCH (09:00)
[2021-07-20] MEDS ORDERED: MULTIVITAMIN (CENTRUM) TABLET PO SCH (09:00)
[2021-07-20] MEDS ORDERED: MONTELUKAST 10 MG TABLET PO SCH (09:00)
[2021-07-20] MEDS ORDERED: hydroCHLOROthiazide 12.5 MG CAPSULE PO SCH (09:00)
[2021-07-20] MEDS ORDERED: BUDESONIDE/FORMOTEROL 160-4.5 INHALER 6 GM INH SCH (09:00)
[2021-07-20] MEDS ORDERED: ROSUVASTATIN 20 MG TABLET PO SCH (09:00)
[2021-07-20] MEDS ORDERED: amLODIPine 10 MG TABLET PO SCH (09:00)
[2021-07-20] MEDS: GABAPENTIN 300 MG CAPSULE PO SCH (10:35)
[2021-07-20] MEDS: PHENYTOIN ER 100 MG CAPSULE PO SCH (10:35)
[2021-07-20] MEDS: carvediloL 3.125 MG TABLET PO SCH (10:41)
[2021-07-20 11:42] VITALS: BP 119/58
[2021-07-20] MEDS ORDERED: IPRATROPIUM 500 MCG/2.5 ML NEB RESP TX SCH (15:00)
== END 2021-07-20 13:46 | disposition home health service (06) ==
LOC: N.ADMINP 05:47 → N.OR 05:47 → N.3E 05:47 → N.ADMINP 05:49 → N.SDSINP 05:49 → INTOOBSV 11:22 → N.SDSINP 11:22 → N.3E 13:42
PROVIDERS: ADMIT Surgery; ATTEND Surgery

== ENCOUNTER 2021-08-02 05:59 | Inpatient (IN) ==
[2021-07-31 12:47] LABS: Basophils # 0.1 10*3/uL (0.0-0.2); Basophils % 0.4 % (0.0-0.8); Eosinophils % 0.3 % (0.00-10.9); Hemoglobin 8.1 GM/DL (14.0-18.0); Immature Granulocytes % 0.6 %; Lymphocytes # 1.7 10*3/uL (1.4-4.0); Lymphocytes % 10.7 % (21.2-54.2); Mean Corpuscular HGB Conc 32.4 GM/DL (32-36); Mean Corpuscular Volume 92.6 FL (87-102); Mean Platelet Volume 8.9 FL (9.6-12.0); Monocytes % 9.8 % (1.7-12.7); Neutrophils % 78.2 % (38.7-73.9); Red Cell Distribution Width 12.8 % (9.3-17.3); White Blood Count 15.9 T/CUMM (4-12)
[2021-07-31 12:52] LABS: Platelet Count 613 T/CUMM (130-400)
[2021-07-31 12:55] LABS: INR 1.2; PT Patient Result 13.5 SECS (10.5-12.0); Partial Thromboplastin Time 37.1 SECS (23.8-32.1)
[2021-07-31 13:18] LABS: Calcium 9.6 MG/DL (8.5-10.1); Osmolality,Calculated 263.7 MOS/KG (273-304); Potassium 4.8 MMOL/L (3.5-5.1)
[~2021-08-02 05:59] MED LIST: ACETAMINOPHEN 500 MG TABLET PO ONE; FAMOTIDINE 20 MG TABLET PO ONE; GABAPENTIN 400 MG CAPSULE PO ONE
[2021-08-02] MEDS ORDERED: LACTATED RINGERS 1,000 ML IV SCH (08:30)
[2021-08-02] MEDS ORDERED: DEXMEDETOMIDINE 200 MCG/2 ML VIAL ONE (08:57)
[2021-08-02] MEDS ORDERED: LIDOCAINE MPF 2% /EPI 20 ML VIAL ONE (09:19)
[2021-08-02] MEDS ORDERED: HYDROmorphone 2 MG/1 ML VIAL IV PRN ×2 (10:28)
[2021-08-02] MEDS ORDERED: ONDANSETRON 4 MG/2 ML VIAL IV PRN (10:28)
[2021-08-02] MEDS ORDERED: BISACODYL 5 MG TABLET PO PRN (10:28)
[2021-08-02] MEDS ORDERED: ACETAMINOPHEN 325 MG TABLET PO PRN (10:28)
[2021-08-02] MEDS ORDERED: ALBUTEROL/IPRATROPIUM 3 ML NEB RESP TX PRN (10:28)
[2021-08-02] MEDS ORDERED: NON-FORMULARY MEDICATION (Albuterol Sulfate [Proair Hfa] 90 MCG/PUFF HFA aerosol inhaler) INH PRN (10:31)
[2021-08-02] MEDS: LACTATED RINGERS 1,000 ML IV SCH ×2 (10:55→17:10)
[2021-08-02] MEDS: fentaNYL 2 MCG/ROPIV 0.2% EPID 100 ML EPIDURAL SCH (12:08)
[2021-08-02] MEDS ORDERED: traZODone 50 MG TABLET PO PRN (13:55)
[2021-08-02] MEDS: IPRATROPIUM 500 MCG/2.5 ML NEB RESP TX SCH ×2 (15:01→20:20)
[2021-08-02] MEDS: GABAPENTIN 300 MG CAPSULE PO SCH ×2 (15:22→21:53)
[2021-08-02] MEDS: KETOROLAC 15 MG/1 ML VIAL IV PRN ×2 (15:23→21:52)
[2021-08-02] MEDS: carvediloL 3.125 MG TABLET PO SCH (17:08)
[2021-08-02] MEDS: risperiDONE 1 MG TABLET PO SCH (21:53)
[2021-08-02] MEDS: PHENYTOIN ER 100 MG CAPSULE PO SCH (21:53)
[2021-08-02] MEDS: BUDESONIDE/FORMOTEROL 160-4.5 INHALER 6 GM INH SCH (21:53)
[2021-08-03] MEDS: LACTATED RINGERS 1,000 ML IV SCH ×2 (01:10→09:39)
[2021-08-03] MEDS: KETOROLAC 15 MG/1 ML VIAL IV PRN ×3 (03:06→20:16)
[2021-08-03 05:33] LABS: Basophils # 0.1 10*3/uL (0.0-0.2); Basophils % 0.7 % (0.0-0.8); Eosinophils # 0.1 10*3/uL (0.0-0.87); Eosinophils % 1.5 % (0.00-10.9); Hematocrit 20.4 VOL% (42.0-52.0); Hemoglobin 6.6 GM/DL (14.0-18.0); Immature Granulocytes Absolute 0.08 #; Lymphocytes # 1.1 10*3/uL (1.4-4.0); Lymphocytes % 13.3 % (21.2-54.2); Mean Corpuscular HGB Conc 32.4 GM/DL (32-36); Mean Corpuscular Volume 91.5 FL (87-102); Monocytes % 10.7 % (1.7-12.7); Neutrophils % 72.8 % (38.7-73.9); Platelet Count 425 T/CUMM (130-400); Red Blood Count 2.23 MC/CUMM (3.8-5.5); Red Cell Distribution Width 12.8 % (9.3-17.3); White Blood Count 8.1 T/CUMM (4-12)
[2021-08-03 05:52] LABS: Calcium 8.4 MG/DL (8.5-10.1); Osmolality,Calculated 264.5 MOS/KG (273-304); Potassium 3.9 MMOL/L (3.5-5.1)
[2021-08-03] MEDS: IPRATROPIUM 500 MCG/2.5 ML NEB RESP TX SCH (07:30)
[2021-08-03] MEDS ORDERED: SODIUM CHLORIDE 0.9% 1,000 ML IV PRN ×2 (07:57→10:34)
[2021-08-03] MEDS ORDERED: hydroCHLOROthiazide 12.5 MG CAPSULE PO SCH (09:00)
[2021-08-03] MEDS: PANTOPRAZOLE 40 MG TABLET PO SCH (09:14)
[2021-08-03] MEDS: ROSUVASTATIN 20 MG TABLET PO SCH (09:14)
[2021-08-03] MEDS: MAGNESIUM OXIDE 400 MG TABLET PO SCH (09:14)
[2021-08-03] MEDS: amLODIPine 10 MG TABLET PO SCH (09:14)
[2021-08-03] MEDS: carvediloL 3.125 MG TABLET PO SCH (09:14)
[2021-08-03] MEDS: MONTELUKAST 10 MG TABLET PO SCH (09:14)
[2021-08-03] MEDS: GABAPENTIN 300 MG CAPSULE PO SCH (09:14)
[2021-08-03] MEDS: PHENYTOIN ER 100 MG CAPSULE PO SCH ×2 (09:15→21:03)
[2021-08-03] MEDS: BUDESONIDE/FORMOTEROL 160-4.5 INHALER 6 GM INH SCH ×2 (09:38→21:00)
[2021-08-03] MEDS: ALBUTEROL/IPRATROPIUM 3 ML NEB RESP TX SCH ×2 (15:47→20:22)
[2021-08-03] MEDS: fentaNYL 2 MCG/ROPIV 0.2% EPID 100 ML EPIDURAL SCH (16:05)
[2021-08-03] MEDS: risperiDONE 1 MG TABLET PO SCH (21:03)
[2021-08-04] MEDS: ALBUTEROL/IPRATROPIUM 3 ML NEB RESP TX SCH ×4 (00:28→19:06)
[2021-08-04] MEDS: KETOROLAC 15 MG/1 ML VIAL IV PRN ×3 (02:41→16:24)
[2021-08-04 02:48] LABS: Hematocrit 30.1 VOL% (42.0-52.0); Hemoglobin 9.7 GM/DL (14.0-18.0)
[2021-08-04] MEDS: MONTELUKAST 10 MG TABLET PO SCH (10:00)
[2021-08-04] MEDS: ROSUVASTATIN 20 MG TABLET PO SCH (10:00)
[2021-08-04] MEDS: PHENYTOIN ER 100 MG CAPSULE PO SCH ×2 (10:01→20:23)
[2021-08-04] MEDS: PANTOPRAZOLE 40 MG TABLET PO SCH (10:01)
[2021-08-04] MEDS: MAGNESIUM OXIDE 400 MG TABLET PO SCH (10:01)
[2021-08-04] MEDS: BUDESONIDE/FORMOTEROL 160-4.5 INHALER 6 GM INH SCH ×2 (10:02→20:24)
[2021-08-04 12:02] LABS: AFP Tumor < 2.2 NG/ML (0-8)
[2021-08-04] MEDS: fentaNYL 2 MCG/ROPIV 0.2% EPID 100 ML EPIDURAL SCH (12:44)
[2021-08-04] MEDS: risperiDONE 1 MG TABLET PO SCH (20:23)
[2021-08-05] MEDS: KETOROLAC 15 MG/1 ML VIAL IV PRN
[2021-08-05] MEDS: ALBUTEROL/IPRATROPIUM 3 ML NEB RESP TX SCH ×4 (01:03→19:28)
[2021-08-05] MEDS: fentaNYL 2 MCG/ROPIV 0.2% EPID 100 ML EPIDURAL SCH (08:10)
[2021-08-05] MEDS: ROSUVASTATIN 20 MG TABLET PO SCH (09:32)
[2021-08-05] MEDS: BUDESONIDE/FORMOTEROL 160-4.5 INHALER 6 GM INH SCH ×2 (09:33→20:07)
[2021-08-05] MEDS: MAGNESIUM OXIDE 400 MG TABLET PO SCH (09:33)
[2021-08-05] MEDS: MONTELUKAST 10 MG TABLET PO SCH (09:33)
[2021-08-05] MEDS: PHENYTOIN ER 100 MG CAPSULE PO SCH ×2 (09:33→20:06)
[2021-08-05] MEDS: PANTOPRAZOLE 40 MG TABLET PO SCH (09:33)
[2021-08-05] MEDS: risperiDONE 1 MG TABLET PO SCH (20:07)
[2021-08-06] MEDS: ALBUTEROL/IPRATROPIUM 3 ML NEB RESP TX SCH ×4 (00:47→16:30)
[2021-08-06] MEDS: fentaNYL 2 MCG/ROPIV 0.2% EPID 100 ML EPIDURAL SCH (09:47)
[2021-08-06] MEDS: MAGNESIUM OXIDE 400 MG TABLET PO SCH (09:48)
[2021-08-06] MEDS: MONTELUKAST 10 MG TABLET PO SCH (09:48)
[2021-08-06] MEDS: PHENYTOIN ER 100 MG CAPSULE PO SCH (09:48)
[2021-08-06] MEDS: BUDESONIDE/FORMOTEROL 160-4.5 INHALER 6 GM INH SCH (09:48)
[2021-08-06] MEDS: PANTOPRAZOLE 40 MG TABLET PO SCH (09:48)
[2021-08-06] MEDS: ROSUVASTATIN 20 MG TABLET PO SCH (09:48)
[2021-08-06] MEDS: amLODIPine 10 MG TABLET PO SCH (11:56)
[2021-08-06] MEDS: carvediloL 3.125 MG TABLET PO SCH (11:56)
[2021-08-06 16:37] VITALS: BP 154/80
[2021-08-06] MEDS ORDERED: RIVAROXABAN 2.5 MG TABLET PO SCH (21:00)
[2021-08-07 16:11] LABS: Myeloperoxidase Antibody < 0.2 U
== END 2021-08-06 17:03 | DRG 240 ==
LOC: N.OR 05:59 → N.SDSINP 06:01 → EDSTATUS 09:15 → N.OR 10:24 → N.5E 10:28
PROVIDERS: ADMIT Surgery; ATTEND Surgery

== ENCOUNTER 2021-09-06 06:13 | Observation (INO) ==
[2021-09-06] MEDS ORDERED: VANCOMYCIN INJ 1,000 MG in SODIUM CHLORIDE 0.9% 250 ML IV ONE (08:00)
[2021-09-06] MEDS ORDERED: LIDOCAINE 1% 50 ML VIAL ONE (08:24)
[2021-09-06] MEDS ORDERED: propofoL 200 MG/20 ML VIAL IV ONE (09:16)
[2021-09-06] MEDS ORDERED: fentaNYL 100 MCG/2 ML VIAL ONE (09:23)
[2021-09-06] MEDS ORDERED: ePHEDrine 50 MG/ML VIAL ONE (09:28)
[2021-09-06] MEDS ORDERED: ACETAMINOPHEN 325 MG TABLET PO PRN (10:20)
[2021-09-06] MEDS ORDERED: ONDANSETRON 4 MG/2 ML VIAL IV PRN ×2 (10:20→10:34)
[2021-09-06] MEDS ORDERED: SEVOFLURANE 1 UNIT/15 MINUTE INH ONE (10:22)
[2021-09-06] MEDS ORDERED: LIDOCAINE 2% 5 ML VIAL ONE (10:22)
[2021-09-06] MEDS ORDERED: LEVOFLOXACIN INJ 750 MG/150 ML PREMIX IV SCH (10:30)
[2021-09-06] MEDS ORDERED: HYDROmorphone 2 MG/1 ML VIAL ONE (10:30)
[2021-09-06] MEDS: HYDROmorphone 2 MG/1 ML VIAL IV PRN ×4 (10:33→11:02)
[2021-09-06 11:50] LABS: Basophils # 0.1 10*3/uL (0.0-0.2); Basophils % 0.7 % (0.0-0.8); Eosinophils # 0.2 10*3/uL (0.0-0.87); Eosinophils % 1.7 % (0.00-10.9); Hematocrit 26.8 VOL% (42.0-52.0); Hemoglobin 8.3 GM/DL (14.0-18.0); Immature Granulocytes % 0.5 %; Immature Granulocytes Absolute 0.05 #; Lymphocytes # 1.9 10*3/uL (1.4-4.0); Lymphocytes % 18.9 % (21.2-54.2); Mean Platelet Volume 8.5 FL (9.6-12.0); Monocytes % 10.7 % (1.7-12.7); Neutrophils % 67.5 % (38.7-73.9); Platelet Count 406 T/CUMM (130-400); Red Blood Count 3.01 MC/CUMM (3.8-5.5); Red Cell Distribution Width 13.5 % (9.3-17.3); White Blood Count 10.3 T/CUMM (4-12)
[2021-09-06 12:19] LABS: Calcium 8.9 MG/DL (8.5-10.1); Osmolality,Calculated 269.1 MOS/KG (273-304); Potassium 3.9 MMOL/L (3.5-5.1)
[2021-09-06] MEDS: MORPHINE 2 MG/1 ML SYRINGE IV PRN ×2 (14:30→21:34)
[2021-09-06] MEDS ORDERED: VANCOMYCIN INJ 750 MG in SODIUM CHLORIDE 0.9% 250 ML IV SCH (21:00)
[2021-09-07 06:01] LABS: Basophils # 0.1 10*3/uL (0.0-0.2); Basophils % 0.5 % (0.0-0.8); Eosinophils # 0.1 10*3/uL (0.0-0.87); Eosinophils % 1.1 % (0.00-10.9); Hematocrit 25.5 VOL% (42.0-52.0); Immature Granulocytes % 0.5 %; Immature Granulocytes Absolute 0.05 #; Lymphocytes # 1.4 10*3/uL (1.4-4.0); Lymphocytes % 13.2 % (21.2-54.2); Mean Corpuscular HGB Conc 31.4 GM/DL (32-36); Mean Corpuscular Volume 91.7 FL (87-102); Mean Platelet Volume 9.8 FL (9.6-12.0); Monocytes % 10.9 % (1.7-12.7); Neutrophils % 73.8 % (38.7-73.9); Platelet Count 406 T/CUMM (130-400); Red Blood Count 2.78 MC/CUMM (3.8-5.5); Red Cell Distribution Width 13.4 % (9.3-17.3); White Blood Count 10.3 T/CUMM (4-12)
[2021-09-07 06:19] LABS: Calcium 8.9 MG/DL (8.5-10.1); Osmolality,Calculated 267.2 MOS/KG (273-304); Potassium 3.9 MMOL/L (3.5-5.1)
[2021-09-07] MEDS: MORPHINE 2 MG/1 ML SYRINGE IV PRN (08:09)
[2021-09-07 08:39] VITALS: BP 118/64
[2021-09-07] MEDS ORDERED: PANTOPRAZOLE 40 MG TABLET PO SCH (09:00)
[2021-09-07] MEDS ORDERED: SKIN HEALING OINT (AQUAPHOR) 50 GM TUBE TOP SCH (09:00)
== END 2021-09-07 10:58 | disposition home or self-care (01) ==
LOC: N.OR 06:13 → N.SDSINP 06:16 → OBSVTOIN 10:10 → INTOOBSV 10:10 → N.3E 11:31
PROVIDERS: ADMIT Surgery; ATTEND Surgery

== ENCOUNTER 2022-06-12 14:49 | Inpatient (IN) ==
[2022-06-12 16:04] LABS: Basophils # 0.1 10*3/uL (0.0-0.2); Basophils % 0.4 % (0.0-0.8); Eosinophils # 0.1 10*3/uL (0.0-0.87); Eosinophils % 0.3 % (0.00-10.9); Hematocrit 30.9 VOL% (42.0-52.0); Hemoglobin 9.7 GM/DL (14.0-18.0); Immature Granulocytes % 0.9 %; Immature Granulocytes Absolute 0.16 #; Lymphocytes # 1.1 10*3/uL (1.4-4.0); Lymphocytes % 6.1 % (21.2-54.2); Mean Corpuscular HGB Conc 31.4 GM/DL (32-36); Mean Corpuscular Volume 93.1 FL (87-102); Mean Platelet Volume 10.1 FL (9.6-12.0); Monocytes # 0.9 10*3/uL (0.11-0.8); Monocytes % 4.8 % (1.7-12.7); Neutrophils % 87.5 % (38.7-73.9); Platelet Count 668 T/CUMM (130-400); Red Blood Count 3.32 MC/CUMM (3.8-5.5); Red Cell Distribution Width 13.5 % (9.3-17.3); White Blood Count 18.7 T/CUMM (4-12)
[2022-06-12 16:13] LABS: Calcium 9.4 MG/DL (8.5-10.1); Osmolality,Calculated 275.1 MOS/KG (273-304); Potassium 4.2 MMOL/L (3.5-5.1)
[2022-06-12] MEDS ORDERED: VANCOMYCIN INJ 1,000 MG in SODIUM CHLORIDE 0.9% 250 ML IV STA (17:56)
[2022-06-12] MEDS ORDERED: ACETAMINOPHEN 325 MG TABLET PO PRN (19:03)
[2022-06-12] MEDS ORDERED: GLUCAGON 1 MG VIAL IM PRN (19:03)
[2022-06-12] MEDS ORDERED: hydrALAZINE 20 MG/1 ML VIAL IV PRN (19:03)
[2022-06-12] MEDS ORDERED: ONDANSETRON 4 MG/2 ML VIAL IV PRN (19:03)
[2022-06-12] MEDS ORDERED: DEXTROSE 10% 250 ML BAG IV PRN (19:03)
[2022-06-12] MEDS ORDERED: ZALEPLON 5 MG CAPSULE PO PRN (19:03)
[2022-06-12] MEDS ORDERED: NICOTINE 21 MG/24 HR PATCH TRANSDERM PRN (19:03)
[2022-06-12] MEDS ORDERED: diphenhydrAMINE CAP 25 MG CAPSULE PO PRN (19:03)
[2022-06-12] MEDS: CLINDAMYCIN INJ 600 MG/50 ML PREMIX IV SCH ×2 (19:09→23:34)
[2022-06-12] MEDS: SODIUM CHLORIDE 0.9% 1,000 ML IV SCH (21:33)
[2022-06-13 04:47] LABS: Basophils # 0.1 10*3/uL (0.0-0.2); Basophils % 0.8 % (0.0-0.8); Eosinophils # 0.2 10*3/uL (0.0-0.87); Eosinophils % 1.4 % (0.00-10.9); Hematocrit 29.1 VOL% (42.0-52.0); Hemoglobin 9.3 GM/DL (14.0-18.0); Immature Granulocytes % 0.9 %; Immature Granulocytes Absolute 0.11 #; Lymphocytes # 1.1 10*3/uL (1.4-4.0); Lymphocytes % 9.3 % (21.2-54.2); Mean Corpuscular Volume 92.7 FL (87-102); Mean Platelet Volume 10.1 FL (9.6-12.0); Monocytes % 8.6 % (1.7-12.7); Platelet Count 539 T/CUMM (130-400); Red Blood Count 3.14 MC/CUMM (3.8-5.5); Red Cell Distribution Width 13.4 % (9.3-17.3); White Blood Count 11.8 T/CUMM (4-12)
[2022-06-13 05:10] LABS: Calcium 9.4 MG/DL (8.5-10.1); Osmolality,Calculated 273.8 MOS/KG (273-304); Potassium 4.5 MMOL/L (3.5-5.1)
[2022-06-13] MEDS: CLINDAMYCIN INJ 600 MG/50 ML PREMIX IV SCH (05:56)
[2022-06-13] MEDS: amLODIPine 10 MG TABLET PO SCH (10:49)
[2022-06-13] MEDS: ALBUTEROL 2 MG TABLET PO SCH ×3 (10:49→20:14)
[2022-06-13] MEDS: PHENYTOIN ER 100 MG CAPSULE PO SCH ×2 (10:50→20:14)
[2022-06-13] MEDS: METOPROLOL SUCCINATE XL 25 MG TABLET PO SCH (10:50)
[2022-06-13] MEDS: PANTOPRAZOLE 40 MG TABLET PO SCH (10:50)
[2022-06-13] MEDS: guaiFENesin/DM ER 600-30 MG TABLET PO PRN (10:50)
[2022-06-13] MEDS: VANCOMYCIN INJ 750 MG in SODIUM CHLORIDE 0.9% 250 ML IV SCH (12:43)
[2022-06-13] MEDS: PIPERACILLIN/TAZOBACTAM 3,375 MG in SODIUM CHLORIDE 0.9% 100 ML IV SCH ×2 (14:38→20:17)
[2022-06-13] MEDS: SODIUM CHLORIDE 0.9% 1,000 ML IV SCH (14:38)
[2022-06-14 04:13] LABS: Basophils # 0.1 10*3/uL (0.0-0.2); Eosinophils # 0.2 10*3/uL (0.0-0.87); Eosinophils % 1.3 % (0.00-10.9); Hematocrit 29.9 VOL% (42.0-52.0); Hemoglobin 9.6 GM/DL (14.0-18.0); Immature Granulocytes % 0.9 %; Immature Granulocytes Absolute 0.12 #; Lymphocytes # 1.2 10*3/uL (1.4-4.0); Lymphocytes % 9.3 % (21.2-54.2); Mean Corpuscular HGB Conc 32.1 GM/DL (32-36); Mean Corpuscular Volume 91.2 FL (87-102); Mean Platelet Volume 10.1 FL (9.6-12.0); Monocytes % 7.8 % (1.7-12.7); Neutrophils % 79.7 % (38.7-73.9); Platelet Count 570 T/CUMM (130-400); Red Blood Count 3.28 MC/CUMM (3.8-5.5); Red Cell Distribution Width 13.3 % (9.3-17.3); White Blood Count 13.2 T/CUMM (4-12)
[2022-06-14 04:34] LABS: % Iron Saturation 21.4 % (18-50); Calcium 9.4 MG/DL (8.5-10.1); Ferritin 924.3 ng/mL (26-388); Osmolality,Calculated 264.4 MOS/KG (273-304); Potassium 3.8 MMOL/L (3.5-5.1)
[2022-06-14] MEDS: VANCOMYCIN INJ 750 MG in SODIUM CHLORIDE 0.9% 250 ML IV SCH (05:02)
[2022-06-14] MEDS: PIPERACILLIN/TAZOBACTAM 3,375 MG in SODIUM CHLORIDE 0.9% 100 ML IV SCH (06:06)
[2022-06-14] MEDS ORDERED: CLINDAMYCIN INJ 900 MG/50 ML PREMIX IV ONE (07:12)
[2022-06-14] MEDS ORDERED: ETOMIDATE 40 MG/20 ML VIAL IV ONE (07:17)
[2022-06-14] MEDS ORDERED: LIDOCAINE 2% 5 ML VIAL ONE (07:17)
[2022-06-14] MEDS ORDERED: propofoL 200 MG/20 ML VIAL IV ONE (07:17)
[2022-06-14] MEDS ORDERED: MAGNESIUM SULF RIDER 2 GM/50 ML PREMIX IV ONE (07:30)
[2022-06-14] MEDS ORDERED: ROPIVACAINE 0.5% 30 ML VIAL ONE ×2 (07:37→10:25)
[2022-06-14] MEDS ORDERED: fentaNYL 100 MCG/2 ML VIAL ONE (08:10)
[2022-06-14] MEDS ORDERED: SEVOFLURANE 1 UNIT/15 MINUTE INH ONE (08:43)
[2022-06-14] MEDS ORDERED: ONDANSETRON 4 MG/2 ML VIAL ONE (08:43)
[2022-06-14] MEDS ORDERED: PHENYLEPHRINE 1 MG/10 ML SYRINGE IV ONE (08:44)
[2022-06-14] MEDS ORDERED: HYDROmorphone 1 MG/1 ML SYRINGE IV PRN (09:19)
[2022-06-14] MEDS ORDERED: ONDANSETRON 4 MG/2 ML VIAL IV PRN (09:19)
[2022-06-14] MEDS ORDERED: HYDROmorphone 1 MG/1 ML SYRINGE ONE (09:20)
[2022-06-14] MEDS: SODIUM CHLORIDE 0.9% 1,000 ML IV SCH ×2 (09:48→22:00)
[2022-06-14] MEDS: HYDROmorphone 1 MG/1 ML SYRINGE IV PRN ×2 (11:36→15:39)
[2022-06-14] MEDS: amLODIPine 10 MG TABLET PO SCH (11:38)
[2022-06-14] MEDS: PHENYTOIN ER 100 MG CAPSULE PO SCH ×2 (11:38→21:25)
[2022-06-14] MEDS: PANTOPRAZOLE 40 MG TABLET PO SCH (11:38)
[2022-06-14] MEDS: ALBUTEROL 2 MG TABLET PO SCH ×3 (11:38→21:26)
[2022-06-14] MEDS: FERROUS SULFATE 325 MG TABLET PO SCH ×2 (11:38→21:26)
[2022-06-14] MEDS: METOPROLOL SUCCINATE XL 25 MG TABLET PO SCH (11:38)
[2022-06-15] MEDS: HYDROmorphone 1 MG/1 ML SYRINGE IV PRN ×2 (03:10→08:15)
[2022-06-15 05:04] LABS: Basophils # 0.1 10*3/uL (0.0-0.2); Basophils % 0.6 % (0.0-0.8); Eosinophils # 0.1 10*3/uL (0.0-0.87); Eosinophils % 0.8 % (0.00-10.9); Hematocrit 30.3 VOL% (42.0-52.0); Hemoglobin 9.5 GM/DL (14.0-18.0); Immature Granulocytes Absolute 0.16 #; Lymphocytes # 1.1 10*3/uL (1.4-4.0); Lymphocytes % 7.1 % (21.2-54.2); Mean Corpuscular HGB Conc 31.4 GM/DL (32-36); Mean Corpuscular Volume 93.8 FL (87-102); Mean Platelet Volume 10.1 FL (9.6-12.0); Monocytes # 1.3 10*3/uL (0.11-0.8); Monocytes % 8.2 % (1.7-12.7); Neutrophils % 82.3 % (38.7-73.9); Platelet Count 613 T/CUMM (130-400); Red Blood Count 3.23 MC/CUMM (3.8-5.5); Red Cell Distribution Width 13.3 % (9.3-17.3); White Blood Count 15.9 T/CUMM (4-12)
[2022-06-15] MEDS: SODIUM CHLORIDE 0.9% 1,000 ML IV SCH ×3 (05:24→23:17)
[2022-06-15 05:26] LABS: Calcium 9.2 MG/DL (8.5-10.1); Osmolality,Calculated 263.5 MOS/KG (273-304)
[2022-06-15] MEDS: FERROUS SULFATE 325 MG TABLET PO SCH ×2 (08:16→20:39)
[2022-06-15] MEDS: METOPROLOL SUCCINATE XL 25 MG TABLET PO SCH (08:16)
[2022-06-15] MEDS: ALBUTEROL 2 MG TABLET PO SCH ×3 (08:16→20:39)
[2022-06-15] MEDS: PHENYTOIN ER 100 MG CAPSULE PO SCH ×2 (08:16→20:39)
[2022-06-15] MEDS: amLODIPine 10 MG TABLET PO SCH (08:16)
[2022-06-15] MEDS: PANTOPRAZOLE 40 MG TABLET PO SCH (08:19)
[2022-06-15] MEDS ORDERED: MORPHINE 2 MG/1 ML SYRINGE IV PRN (11:29)
[2022-06-15] MEDS: methylPREDNISolone 4 MG TABLET PO SCH (12:51)
[2022-06-15] MEDS: MONTELUKAST 10 MG TABLET PO SCH (12:52)
[2022-06-15] MEDS: cefTRIAXone 1,000 MG in SODIUM CHLORIDE 0.9% 100 ML IV SCH (12:53)
[2022-06-15] MEDS: AZITHROMYCIN INJ 500 MG in SODIUM CHLORIDE 0.9% 250 ML IV SCH (12:55)
[2022-06-15 13:36] LABS: Bacteria,Urine Occasional /HPF (Few); Mucus,Urine Occasional /LPF (Occasional); RBC,Urine 1 /HPF (0-4); Squamous Epithelial Cell,Urine Occasional /HPF (0-10)
[2022-06-15 13:37] LABS: Urine Appearance Clear (Clear); Urine Color Yellow (Yellow); Urine Specific Gravity 1.025 (1.001-1.035); Urine pH 5.5 (4.5-8.0)
[2022-06-15 13:38] LABS: Bilirubin,Urine Negative (Negative); Blood, Urine Negative (Negative); Glucose,Urine (UA) Negative (Negative); Ketones,Urine 15 mg/dL (Negative); Nitrite,Urine Negative (Negative); Protein,Urine Negative (Negative); Urine Urobilinogen 0.2 eU/dL (<2.0)
[2022-06-15] MEDS: ALBUTEROL/IPRATROPIUM 3 ML NEB RESP TX SCH ×2 (15:57→19:32)
[2022-06-15] MEDS: guaiFENesin/DM ER 600-30 MG TABLET PO PRN (20:39)
[2022-06-15] MEDS ORDERED: ROSUVASTATIN 20 MG TABLET PO SCH (21:00)
[2022-06-16] MEDS: ALBUTEROL/IPRATROPIUM 3 ML NEB RESP TX SCH ×2 (00:43→07:30)
[2022-06-16 05:28] LABS: Basophils # 0.1 10*3/uL (0.0-0.2); Basophils % 0.5 % (0.0-0.8); Eosinophils # 0.1 10*3/uL (0.0-0.87); Eosinophils % 1.1 % (0.00-10.9); Hemoglobin 8.8 GM/DL (14.0-18.0); Immature Granulocytes % 0.9 %; Lymphocytes # 0.9 10*3/uL (1.4-4.0); Lymphocytes % 8.2 % (21.2-54.2); Mean Corpuscular HGB Conc 32.6 GM/DL (32-36); Mean Corpuscular Volume 90.9 FL (87-102); Mean Platelet Volume 9.9 FL (9.6-12.0); Monocytes # 1.1 10*3/uL (0.11-0.8); Monocytes % 9.6 % (1.7-12.7); Neutrophils % 79.7 % (38.7-73.9); Platelet Count 515 T/CUMM (130-400); Red Blood Count 2.97 MC/CUMM (3.8-5.5); Red Cell Distribution Width 13.2 % (9.3-17.3); White Blood Count 10.9 T/CUMM (4-12)
[2022-06-16 05:43] LABS: Calcium 8.8 MG/DL (8.5-10.1); Osmolality,Calculated 263.5 MOS/KG (273-304); Potassium 3.7 MMOL/L (3.5-5.1)
[2022-06-16] MEDS ORDERED: MAGNESIUM SULF RIDER 2 GM/50 ML PREMIX IV ONE (09:00)
[2022-06-16] MEDS ORDERED: BUDESONIDE/FORMOTEROL 80-4.5 INHALER 6.9 GM INH SCH (09:00)
[2022-06-16] MEDS: amLODIPine 10 MG TABLET PO SCH (09:59)
[2022-06-16] MEDS: PHENYTOIN ER 100 MG CAPSULE PO SCH (09:59)
[2022-06-16] MEDS: PANTOPRAZOLE 40 MG TABLET PO SCH (09:59)
[2022-06-16] MEDS: FERROUS SULFATE 325 MG TABLET PO SCH (09:59)
[2022-06-16] MEDS: METOPROLOL SUCCINATE XL 25 MG TABLET PO SCH (09:59)
[2022-06-16] MEDS: MONTELUKAST 10 MG TABLET PO SCH (10:00)
[2022-06-16] MEDS: methylPREDNISolone 4 MG TABLET PO SCH (10:00)
[2022-06-16] MEDS: ALBUTEROL 2 MG TABLET PO SCH (10:26)
[2022-06-16 11:40] VITALS: BP 129/65
[2022-06-16] MEDS: cefTRIAXone 1,000 MG in SODIUM CHLORIDE 0.9% 100 ML IV SCH (11:49)
[2022-06-16] MEDS: AZITHROMYCIN INJ 500 MG in SODIUM CHLORIDE 0.9% 250 ML IV SCH (14:02)
== END 2022-06-16 14:13 | disposition home health service (06) | DRG 239 ==
LOC: N.ED 14:49 → N.EDINP 19:03 → N.5E 19:45
PROVIDERS: ADMIT Internal Medicine; ATTEND Internal Medicine